=== PATIENT | female | born 1950 | race Caucasian/White ===

== ENCOUNTER 2016-10-06 11:17 | Emergency (ER) | payer OTHER ==
[~2016-10-06] VITALS: Ht 175.3 cm; Wt 101.5 kg
[~2016-10-06 11:17] MED LIST: ALBUAER3 INH; ASPI81TA11 PO; DEPA500T3 PO; LEVO.125 PO; PRIM250 PO; TEGR200T PO
[2016-10-06 11:33] VITALS: BP 142/68; PULSE 99; RESP 16; TEMP 98.5; O2SAT 96
[2016-10-06] MEDS ORDERED: traMADol HCL 50 MG TAB PO ONE (12:00)
[2016-10-06 12:19] LABS: AUTOMATED NEUTROPHIL # 5.9 TH/MM3 (1.8-7.7); BASOPHIL # 0.2 TH/MM3 (0-0.2); BASOPHIL % 3.3 % (0.0-2.0); BLOOD, URINE LARGE (NEG); EOSINOPHIL % 0.3 % (0.0-4.0); GLUCOSE,URINE NEG (NEG); HEMATOCRIT 40.9 % (35.0-46.0); HEMO FLAGS DIFF FINAL; KETONE, URINE 40 mg/dL (NEG); LYMPH % 11.1 % (9.0-44.0); LYMPHOCYTE # 0.8 TH/MM3 (1.0-4.8); MEAN CELL VOLUME 101.7 FL (80.0-100.0); MEAN CORPUSCULAR HEMOGLOBIN 35.3 PG (27.0-34.0); MEAN CORPUSCULAR HGB CONC 34.7 % (32.0-36.0); MONO % 7.4 % (0.0-8.0); NEUT % 77.9 % (16.0-70.0); NITRITE,URINE NEG (NEG); PLATELET COUNT 249 TH/MM3 (150-450); RED BLOOD COUNT 4.02 MIL/MM3 (4.00-5.30); RED CELL DISTRIBUTION WIDTH 12.8 % (11.6-17.2); WHITE BLOOD COUNT 7.5 TH/MM3 (4.0-11.0)
[2016-10-06 12:24] LABS: METHOD OF COLLECTION CLEAN CATCH; URINE COLOR YELLOW (YELLW/STRAW); WBC, URINE INNUM /hpf (0-5)
[2016-10-06 12:28] LABS: BACTERIA, URINE FEW /hpf; SQUAMOUS EPITHELIAL CELL URINE > 8 /hpf (0-5)
[2016-10-06 12:30] LABS: COMMENT (UR) CULTURE INDICATED; CULTURE IF INDICATED CULTURE INDICATED
[2016-10-06] MEDS ORDERED: MORPHINE SULFATE 4 MG/ML INJ IV PUSH ONE (12:45)
[2016-10-06] MEDS ORDERED: PHENAZOPYRIDINE HCL 100 MG TAB PO ONE (12:45)
[2016-10-06] MEDS ORDERED: cefTRIAXone INJ 1,000 MG in SODIUM CHLORIDE 0.9% INJ 100 ML IV ONE (12:45)
[2016-10-06 12:51] LABS: ALKALINE PHOSPHATASE 82 U/L (45-117); ALT (GPT) 16 U/L (10-53); AST (GOT) 18 U/L (15-37); BICARBONATE 24.9 MEQ/L (21.0-32.0); BLOOD UREA NITROGEN 10 MG/DL (7-18); CHLORIDE 84 MEQ/L (98-107); GLOMERULAR FILTRATION RATE 96 ML/MIN (>89); POTASSIUM 4.2 MEQ/L (3.5-5.1); TOTAL BILIRUBIN ADULT 0.6 MG/DL (0.2-1.0)
[2016-10-06 12:56] LABS: ANION GAP 16 MEQ/L (5-15); SODIUM (NA) 125 MEQ/L (136-145)
[2016-10-06] MEDS ORDERED: ONDANSETRON HCL 4 MG/2 ML VIAL IV PUSH ONE (13:15)
[2016-10-06] MEDS ORDERED: PHEN0.4T PO (13:29)
[2016-10-06] MEDS ORDERED: CIPR-9 PO (13:29)
[2016-10-06] MEDS ORDERED: HYDR-3533 PO (13:29)
--- NOTE | 2016-10-06 13:29 | PD ---
HPI Chief Complaint: Complaint Time Seen by Provider: 11:45 Travel History International Travel<30 days: No Contact w/Intl Traveler<30days: No Traveled to known affect area: No History of Present Illness HPI Patient is a 66-year-old female who comes in complaining of vaginal burning and itching. She says that she is urinating frequently, and often is dribbling urine. She was admitted to the hospital in early August and says she had a Hou catheter at that time. She says since the catheter was removed she has been having discomfort, but it has gotten much worse in the past few days. She says she did have one episode of nausea and vomiting last night, but thought it was due to glass of wine to drink on an empty stomach. She felt a little nauseous this morning but was able to eat some crackers without vomiting. She denies any fever or chills. She denies any abdominal pain. PFSH Past Medical History Arthritis: Yes Asthma: Yes Autoimmune Disease: No Blood Disorders: No Depression: Yes (NO MEDS--RARELY FEELS DEPRESSED) Cancer: No Cardiovascular Problems: No COPD: Yes Cerebrovascular Accident: No Diabetes: No Diminished Hearing: Yes (WEARS GLASSES) Endocrine: Yes Gastrointestinal Disorders: No Genitourinary: No Headaches: No Implanted Vascular Access Dvce: Yes Musculoskeletal: Yes Neurologic: Yes (EPILEPSY) Reproductive: No (TUBAL LIGATION) Respiratory: Yes (copd) Migraines: No Seizures: Yes (CONTROLLED SINCE 12 YEARS OLD) Sleep Apnea: No Thyroid Disease: Yes PNEUMOCCOCAL Vaccine (Year): 2 ?: Not Menopausal: Yes Past Surgical History Abdominal Surgery: No AICD: No Arteriovenous Shunt: No Body Medical Devices: VAGUS NERVE STIMULATOR Cardiac Surgery: No Ear Surgery: No Endocrine Surgery: No Eye Surgery: Yes (BILAT CATARACTS REPAIRED) Genitourinary Surgery: No Gynecologic Surgery: Yes (TUBAL LIGATION) Joint Replacement: No Neurologic Surgery: Yes (vagus nerve stimulator placed) Oral Surgery: No Pacemaker: No Thoracic Surgery: Yes (VAGAL NERVE STIMULATOR) Other Surgery: Yes Social History Alcohol Use: Yes (WINE) Tobacco Use: No Substance Use: No Allergies-Medications (Allergen,Severity, Reaction): Coded Allergies: Biaxin (Verified Allergy, Severe, "BODY GOES NUMB", 10/06/16) Clarithromycin (Verified Allergy, Intermediate, PT STATES THAT SHE IS NOT AWARE OF ALLERGY TO THIS MED, 10/06/16) REACTION NOT GIVEN Reported Meds & Prescriptions Reported Meds & Active Scripts Active Aspirin EC (Aspirin) 81 Mg Tabdr 81 Mg PO DAILY Reported Mysoline (Primidone) 250 Mg Tab 250 Mg PO TID Synthroid (Levothyroxine Sodium) 125 Mcg Tab 125 Mcg PO DAILY Depakote ER (Divalproex Sodium) 500 Mg Antwan 500 Mg PO DAILY Proair Hfa 8.5 GM Inh (Albuterol Sulfate) 90 Mcg/Act Aer 2 Puff INH Q6H PRN 108 mcg/actuation Tegretol (Carbamazepine) 200 Mg Tab 200 Mg PO TID Review of Systems Except as stated in HPI: all other systems reviewed are Neg General / Constitutional: No: Fever, Chills HENT: No: Headaches, Lightheadedness Cardiovascular: No: Chest Pain or Discomfort Respiratory: No: Shortness of Breath Gastrointestinal: Positive: Nausea, No: Abdominal Pain Genitourinary: Positive: Urgency, Frequency, Dysuria, No: Flank Pain Musculoskeletal: No: Myalgias, Edema Skin: No Change in Pigmentation Physical Exam Narrative GENERAL: Awake and alert, in moderate distress secondary to pain. SKIN: Warm and dry. HEAD: Atraumatic. Normocephalic. EYES: Pupils equal and round. No scleral icterus. ENT: Mucous membranes pink and moist. NECK: Trachea midline. No JVD. CARDIOVASCULAR: Regular rate and rhythm. No murmur appreciated. RESPIRATORY: No accessory muscle use. Clear to auscultation. Breath sounds equal bilaterally. GASTROINTESTINAL: Abdomen soft, non-tender, nondistended. No CVA tenderness. : No erythema of the vulva or surrounding skin. No irritation seen on the outside of the vagina. MUSCULOSKELETAL: No obvious deformities. No clubbing. No cyanosis. No edema. NEUROLOGICAL: Awake and alert. No obvious cranial nerve deficits. Motor grossly within normal limits. Normal speech. PSYCHIATRIC: Appropriate mood and affect; insight and judgment normal. Data Data Last Documented VS Vital Signs Date Time Temp Pulse Resp B/P Pulse Ox O2 Delivery O2 Flow Rate FiO2 10/06/16 11:33 98.5 99 16 142/68 96 Orders Complete Blood Count With Diff (10/06/16 11:54) Comprehensive Metabolic Panel (10/06/16 11:54) Urinalysis - C+S If Indicated (10/06/16 11:54) Tramadol (Ultram) (10/06/16 12:00) Urine Culture (10/06/16 12:14) Ceftriaxone Inj (Rocephin Inj) (10/06/16 12:45) Morphine Inj (Morphine Inj) (10/06/16 12:45) Phenazopyridine (Pyridium) (10/06/16 12:45) Ondansetron Inj (Zofran Inj) (10/06/16 13:15) Labs Laboratory Tests Test 10/06/16 12:14 White Blood Count 7.5 TH/MM3 Red Blood Count 4.02 MIL/MM3 Hemoglobin 14.2 GM/DL Hematocrit 40.9 % Mean Corpuscular Volume 101.7 FL Mean Corpuscular Hemoglobin 35.3 PG Mean Corpuscular Hemoglobin 34.7 % Concent Red Cell Distribution Width 12.8 % Platelet Count 249 TH/MM3 Mean Platelet Volume 8.1 FL Neutrophils (%) (Auto) 77.9 % Lymphocytes (%) (Auto) 11.1 % Monocytes (%) (Auto) 7.4 % Eosinophils (%) (Auto) 0.3 % Basophils (%) (Auto) 3.3 % Neutrophils # (Auto) 5.9 TH/MM3 Lymphocytes # (Auto) 0.8 TH/MM3 Monocytes # (Auto) 0.6 TH/MM3 Eosinophils # (Auto) 0.0 TH/MM3 Basophils # (Auto) 0.2 TH/MM3 CBC Comment DIFF FINAL Differential Comment Urine Collection Type CLEAN CATCH Urine Color YELLOW Urine Turbidity MOD Urine pH 6.0 Urine Specific [place] 1.018 Urine Protein 100 mg/dL Urine Glucose (UA) NEG mg/dL Urine Ketones 40 mg/dL Urine Occult Blood LARGE Urine Nitrite NEG Urine Bilirubin NEG Urine Leukocyte Esterase LARGE Urine RBC 25-49 /hpf Urine WBC INNUM /hpf Urine Squamous Epithelial > 8 /hpf Cells Urine Bacteria FEW /hpf Urine Yeast (Budding) MOD Microscopic Urinalysis Comment CULTURE INDICATED Urine Collection Time 12:14 Sodium Level 125 MEQ/L Potassium Level 4.2 MEQ/L Chloride Level 84 MEQ/L Carbon Dioxide Level 24.9 MEQ/L Anion Gap 16 MEQ/L Blood Urea Nitrogen 10 MG/DL Creatinine 0.62 MG/DL Estimat Glomerular Filtration 96 ML/MIN Rate Random Glucose 105 MG/DL Calcium Level 8.7 MG/DL Total Bilirubin 0.6 MG/DL Aspartate Amino Transf 18 U/L (AST/SGOT) Alanine Aminotransferase 16 U/L (ALT/SGPT) Alkaline Phosphatase 82 U/L Total Protein 7.6 GM/DL Albumin 3.8 GM/DL [facility] Medical Decision Making Medical Screen Exam Complete: Yes Emergency Medical Condition: Yes Medical Record Reviewed: Yes Differential Diagnosis UTI versus pyelonephritis versus yeast vaginitis Narrative Course Patient is a 66-year-old female comes in complaining of vaginal burning and itching with urinary frequency and urgency. Exam shows no flank pain, no abdominal tenderness. IV established, labs sent. Labs show no acute abnormalities. Urinalysis is positive for UTI. Patient is very uncomfortable, given tramadol and IV fluids. Given Rocephin for infection. Patient continues to be very uncomfortable, given morphine, Zofran, Pyridium. Patient is feeling better after medications. Will be discharged with course of Cipro. Given prescription for peridium as well. Patient advised follow-up with her doctor. Advised to return to the ED as needed for any worsening symptoms. Diagnosis Primary Impression: UTI (urinary tract infection) Qualified Code: N30.00 - Acute cystitis without hematuria Patient Instructions: General Instructions, Urinary Tract Infection in Women ( ED) Additional Instructions: Follow up with your doctor. You can take Ibuprofen as needed for pain. If your pain is unbearable, you can take a Lortab. The Pyridium will also help relieve your symptoms. Make sure to take all of your antibiotics. Return to the ED if you have any worsening symptoms. Scripts Hydrocodone-Acetaminophen (Lortab)5-325 Mg Tab1 Tab PO Q6H PRN (PAIN) #7 TAB Ref 0 Prov:Florence Chase MD 10/06/16 Phenazopyridine (Pyridium)100 Mg [id number] Mg PO Q8H PRN (DYSURIA) 2 Days Ref 0 Prov:Florence Chase MD 10/06/16 Ciprofloxacin (Cipro)500 Mg [id number] Mg PO BID 10 Days Ref 0 Prov:Florence Chase MD 10/06/16 Disposition: 01 DISCHARGE HOME Condition: Stable Florence Chase MD Oct 06, 2016 13:29
== END 2016-10-06 14:49 | disposition home or self-care (01) ==
LOC: PHED 11:17
DX: N39.0 Urinary tract infection, site not specified (principal); B96.1 Klebsiella pneumoniae [K. pneumoniae] as the cause of diseases classified elsewhere; J44.9 Chronic obstructive pulmonary disease, unspecified
CPT/HCPCS: 80053; 81001; 85025; 87077; 87086; 87186; 96365; 96375; 99283; J0696; J2270; J2405

== ENCOUNTER 2017-03-27 14:58 | Emergency (ER) | payer OTHER ==
[~2017-03-27 14:58] MED LIST changes: +CIPR-9 PO; +HYDR-3533 PO; +PHEN0.4T PO
[2017-03-27 15:02] VITALS: BP 122/71; PULSE 88; RESP 20; TEMP 98.1; O2SAT 94
--- NOTE | 2017-03-27 15:25 | PD ---
HPI Chief Complaint: Back/ Neck Pain or Injury Time Seen by Provider: 15:11 Travel History International Travel<30 days: No Contact w/Intl Traveler<30days: No Traveled to known affect area: No History of Present Illness HPI This is a 66-year-old female who presents to the emergency department with a history of COPD several days ago having been coughing in the setting of choking on food. She says she was coughing really hard and she had onset several hours after of severe pain in the right side of her chest and rib cage, constant, worse with moving from side to side, improved with rest. The pain only occurs when she moves her torso. It has not improved over the past several days despite taking Percocet and ibuprofen. She denies any associated shortness of breath or pain with deep breaths. PFSH Past Medical History Arthritis: Yes Asthma: Yes Autoimmune Disease: No Blood Disorders: No Depression: Yes (NO MEDS--RARELY FEELS DEPRESSED) Cancer: No Cardiovascular Problems: No COPD: Yes Cerebrovascular Accident: No Diabetes: No Diminished Hearing: Yes (WEARS GLASSES) Endocrine: Yes Gastrointestinal Disorders: No Genitourinary: No Headaches: No Implanted Vascular Access Dvce: Yes Musculoskeletal: Yes Neurologic: Yes (EPILEPSY) Reproductive: No (TUBAL LIGATION) Respiratory: Yes (COPD) Migraines: No Seizures: Yes (CONTROLLED SINCE 12 YEARS OLD) Sleep Apnea: No Thyroid Disease: Yes PNEUMOCCOCAL Vaccine (Year): 2 Menopausal: Yes Past Surgical History Abdominal Surgery: No AICD: No Arteriovenous Shunt: No Body Medical Devices: VAGUS NERVE STIMULATOR Cardiac Surgery: No Ear Surgery: No Endocrine Surgery: No Eye Surgery: Yes (BILAT CATARACTS REPAIRED) Genitourinary Surgery: No Gynecologic Surgery: Yes (TUBAL LIGATION) Joint Replacement: No Neurologic Surgery: Yes (vagus nerve stimulator placed) Oral Surgery: No Pacemaker: No Thoracic Surgery: Yes (VAGAL NERVE STIMULATOR) Other Surgery: Yes Social History Alcohol Use: Yes (WINE) Tobacco Use: No Substance Use: No Allergies-Medications (Allergen,Severity, Reaction): Coded Allergies: Biaxin (Verified Allergy, Severe, "BODY GOES NUMB", 03/27/17) Clarithromycin (Verified Allergy, Intermediate, PT STATES THAT SHE IS NOT AWARE OF ALLERGY TO THIS MED, 03/27/17) REACTION NOT GIVEN Reported Meds & Prescriptions Reported Meds & Active Scripts Active Lortab (Hydrocodone-Acetaminophen) 5-325 Mg Tab 1 Tab PO Q6H PRN Aspirin EC (Aspirin) 81 Mg Tabdr 81 Mg PO DAILY Reported Atorvastatin (Atorvastatin Calcium) 10 Mg Tab 10 Mg PO HS Mirapex (Pramipexole Dihydrochloride) 0.5 Mg Tab 0.5 Mg PO BID Ventolin Hfa 18 GM Inh (Albuterol Sulfate) 90 Mcg/Act Aer 2 Puff INH Q4-6H PRN Mysoline (Primidone) 250 Mg Tab 250 Mg PO TID Synthroid (Levothyroxine Sodium) 125 Mcg Tab 125 Mcg PO DAILY Depakote ER (Divalproex Sodium) 500 Mg Antwan 500 Mg PO BID Tegretol (Carbamazepine) 200 Mg Tab 200 Mg PO TID Review of Systems Except as stated in HPI: all other systems reviewed are Neg Physical Exam Narrative GENERAL: obese. SKIN: Focused skin assessment warm and dry. HEAD: Atraumatic. Normocephalic. EYES: Pupils equal and round. No injection or drainage. ENT: Moist mucous membranes NECK: Trachea midline. CARDIOVASCULAR: Regular rate and rhythm. No murmur appreciated. RESPIRATORY: Clear to auscultation. Breath sounds equal bilaterally. GASTROINTESTINAL: Abdomen soft, non-tender, nondistended. MUSCULOSKELETAL: Focally tender over the right lower ribs below the axilla. No focal vertebral tenderness. NEUROLOGICAL: Awake and alert. No obvious cranial nerve deficits. Moving all extremities. PSYCHIATRIC: Appropriate mood and affect; insight and judgment normal. Data Data Last Documented VS Vital Signs Date Time Temp Pulse Resp B/P Pulse Ox O2 Delivery O2 Flow Rate FiO2 03/27/17 15:02 98.1 88 20 122/71 94 Orders Chest, Pa & Lat (03/27/17 ) Spine, Thoracic-Ap/Lat/Sw(3vw) (03/27/17 ) Hydromorphone Pf Inj (Dilaudid Pf Inj) (03/27/17 15:30) MDM Medical Decision Making Medical Screen Exam Complete: Yes Emergency Medical Condition: Yes Differential Diagnosis Rib contusion, rib fracture, pneumothorax, pulmonary embolism, pneumonia Narrative Course This is a 66-year-old female who developed right sided rib pain after coughing 2 days ago. She has a history of COPD and is obese. The pain is musculoskeletal in nature and is only elicited when she twists her torso or moves from side to side. She is focally tender on the lateral rib cage on the right. I considered pneumonia or pulmonary embolism but I think both of these are unlikely as her pain clinically appears to be musculoskeletal. Patient was given pain control here in the emergency department chest x-ray and thoracic spine x-ray will be obtained. If these are reassuring at think she can be discharged home with pain control and follow-up with her primary care physician. If she develops new symptoms she should return to the emergency department. Arianna White MD Mar 27, 2017 15:25
[2017-03-27] MEDS ORDERED: HYDROmorphone HCL PF 1 MG/ML VIAL IM ONE (15:30)
[2017-03-27] MEDS ORDERED: MIRA0.5T PO (15:40)
[2017-03-27] MEDS ORDERED: VENTAER INH (15:40)
[2017-03-27] MEDS ORDERED: ATOR10TA15 PO (15:41)
--- NOTE | 2017-03-27 16:07 | RADRPT ---
EXAM DATE/TIME: 03/27/2017 15:48 [facility] COMPARISON: No previous studies available for comparison. INDICATIONS : Back pain. MEDICAL HISTORY : None. SURGICAL HISTORY : Vagul nerve stimulator. ENCOUNTER: Initial ACUITY: 2 days PAIN SCORE: 9/10 LOCATION: [facility] FINDINGS: The lungs are hyperinflated but clear. Pacemaker is evident. There is no overt congestive failureTh e portion of the bony skeleton visualized is unremarkable. CONCLUSION: Hyperinflated with pacer otherwise negative. Giles Rosenberg MD FACR on March 27, 2017 at 16:04 Board Certified Radiologist. This report was verified electronically.
--- NOTE | 2017-03-27 16:22 | PD ---
Physical Exam Time Seen by Provider: 16:17 Narrative Patient was signed out to me pending results of imaging studies. Please see previous providers note for details. In short, this is a 66-year-old female who presents to the emergency room for evaluation of right-sided back pain after coughing spell 2 days ago. Patient was choking on food and exerted herself to the point of pain. She reports excruciating 9/10 pain in the right posterior rib that is worse with deep breathing, coughing, and range of motion. GENERAL: Well-nourished, morbidly obese female in no acute distress. Afebrile. SKIN: Focused skin assessment warm/dry. HEAD: Normocephalic. EYES: No scleral icterus. No injection or drainage. NECK: Supple, trachea midline. No JVD or lymphadenopathy. CARDIOVASCULAR: Regular rate and rhythm without murmurs, gallops, or rubs. RESPIRATORY: Breath sounds equal bilaterally. No accessory muscle use. CHEST: No deformity or crepitance. No retractions or use of accessory muscles. There is point tenderness to palpation of the right lateral ribs at approximately #6. BACK: Nontender without obvious deformity. No CVA tenderness. Data Data Last Documented VS Vital Signs Date Time Temp Pulse Resp B/P Pulse Ox O2 Delivery O2 Flow Rate FiO2 03/27/17 15:02 98.1 88 20 122/71 94 Orders Chest, Pa & Lat (03/27/17 ) Spine, Thoracic-Ap/Lat/Sw(3vw) (03/27/17 ) Hydromorphone Pf Inj (Dilaudid Pf Inj) (03/27/17 15:30) MDM Medical Record Reviewed: Yes Supervised Visit with FRANCISCA: Yes Differential Diagnosis Rib fracture, contusion, muscle spasm, strain, sprain Narrative Course 66-year-old female presents to the emergency room for evaluation of right-sided posterior rib and back pain after choking 2 days ago. She is afebrile and well- appearing in the emergency room. Resting comfortably. No increased work of breathing. Lungs sounds clear and equal bilaterally. Slightly distant but she has history of COPD. X-ray of the chest shows no acute abnormalities. Differential includes fractured rib or muscle strain secondary to coughing. Thoracic spine x-ray is negative. Patient was informed that fractured ribs do not always show up on x-ray in that to prevent pneumonia she will need to continue taking deep breaths. She was discharged with prescription for Lortab and told to follow-up with her primary care physician. She understands and agrees to plan. Diagnosis Primary Impression: Rib pain on right side Referrals: Primary Care Physician Patient Instructions: General Instructions, Rib Fracture (ED), Thoracic Back Strain (ED) Additional Instruction: Rest and drink plenty of fluids. Take Lortab as directed, as needed for pain. Do not drink alcohol or drive while taking this medication. Apply ice to the affected area for 20 minutes at a time, as needed for pain and swelling. Follow-up with a primary care physician. Return to the emergency room for worsening symptoms. Med/Other Pt SpecificInfo: Prescription(s) given Scripts Hydrocodone-Acetaminophen (Lortab)5-325 Mg Tab1 Tab PO Q6H PRN (PAIN) #12 TAB Ref 0 Prov:Yo Salgado MD 03/27/17 Disposition: 01 DISCHARGE HOME Condition: Stable Michelle Lui Mar 27, 2017 16:22
--- NOTE | 2017-03-27 16:25 | RADRPT ---
EXAM DATE/TIME: 03/27/2017 15:59 [facility] COMPARISON: No previous studies available for comparison. INDICATIONS : Back pain. MEDICAL HISTORY : None. SURGICAL HISTORY : Vagal nerve stimulator. ENCOUNTER: Initial ACUITY: 2 days PAIN SCORE: 8/10 LOCATION: [facility] FINDINGS: Thoracolumbar scoliosis is noted. Mild degenerative changes are evident. There is good preservation of vertebral body heights. Scoliosis is causing minimal degenerative changes. CONCLUSION: 1. Negative for an acute compression. 2. Patient has a vagal nerve stimulator. Giles Rosenberg MD FACR on March 27, 2017 at 16:20 Board Certified Radiologist. This report was verified electronically.
[2017-03-27] MEDS ORDERED: HYDR-3533 PO (17:38)
== END 2017-03-27 18:10 | disposition home or self-care (01) ==
LOC: PHEFT 14:58
DX: R07.81 Pleurodynia (principal); J44.9 Chronic obstructive pulmonary disease, unspecified; J45.909 Unspecified asthma, uncomplicated; E07.9 Disorder of thyroid, unspecified
CPT/HCPCS: 71020; 72072; 96372; 99284; J1170

== ENCOUNTER 2017-04-22 18:03 | Emergency (ER) | payer OTHER ==
[~2017-04-22] VITALS: Ht 172.7 cm; Wt 104.0 kg
[~2017-04-22 18:03] MED LIST changes: -ALBUAER3 INH; +ATOR10TA15 PO; -CIPR-9 PO; +MIRA0.5T PO; -PHEN0.4T PO; +VENTAER INH
[2017-04-22 18:22] VITALS: BP 142/67; PULSE 84; RESP 18; TEMP 98; O2SAT 96
--- NOTE | 2017-04-22 18:36 | PD ---
HPI Chief Complaint: Chest Pain Time Seen by Provider: 18:24 Travel History International Travel<30 days: No Contact w/Intl Traveler<30days: No Traveled to known affect area: No History of Present Illness HPI 66-year-old female arrives with 2 days of sore throat 1 day of retrosternal chest pain. She has COPD and suffers with chronic dyspnea. Any exertion worsens or shortness of breath. She's had no fever. The patient reports a chronic cough and chronic shortness of breath. Pain is worse with swallowing. The chest pain does not radiate. Patient has no history of hypertension hyperlipidemia or coronary artery disease. No history of diabetes. The patient does not smoke. PFSH Past Medical History Arthritis: Yes Asthma: Yes Autoimmune Disease: No Blood Disorders: No Depression: Yes Cancer: No Cardiovascular Problems: No COPD: Yes Cerebrovascular Accident: No Diabetes: No Diminished Hearing: Yes (WEARS GLASSES) Endocrine: Yes Gastrointestinal Disorders: No Genitourinary: No Headaches: No Implanted Vascular Access Dvce: Yes Musculoskeletal: Yes Neurologic: Yes (EPILEPSY) Respiratory: Yes (COPD) Immunizations Current: No Migraines: No Seizures: Yes (CONTROLLED SINCE 12 YEARS OLD) Sleep Apnea: No Thyroid Disease: Yes Influenza Vaccination: No PNEUMOCCOCAL Vaccine (Year): 2 ?: Not Menopausal: Yes Tubal Ligation: Yes Past Surgical History Abdominal Surgery: No AICD: No Arteriovenous Shunt: No Body Medical Devices: VAGUS NERVE STIMULATOR Cardiac Surgery: No Ear Surgery: No Endocrine Surgery: No Eye Surgery: Yes (BILAT CATARACTS REPAIRED) Genitourinary Surgery: No Gynecologic Surgery: Yes (TUBAL LIGATION) Joint Replacement: No Neurologic Surgery: Yes (vagus nerve stimulator placed) Oral Surgery: No Pacemaker: No Thoracic Surgery: Yes (VAGAL NERVE STIMULATOR) Other Surgery: Yes Social History Alcohol Use: Yes (WINE) Tobacco Use: No Substance Use: No Allergies-Medications (Allergen,Severity, Reaction): Coded Allergies: Biaxin (Verified Allergy, Severe, "BODY GOES NUMB", 03/27/17) Clarithromycin (Verified Allergy, Intermediate, PT STATES THAT SHE IS NOT AWARE OF ALLERGY TO THIS MED, 03/27/17) REACTION NOT GIVEN Reported Meds & Prescriptions Reported Meds & Active Scripts Active Nystatin Liq 100,000 unit/ml Susp 5 Ml SWISH-SWAL QID 14 Days Aspirin EC (Aspirin) 81 Mg Tabdr 81 Mg PO DAILY Reported Atorvastatin (Atorvastatin Calcium) 10 Mg Tab 10 Mg PO HS Mirapex (Pramipexole Dihydrochloride) 0.5 Mg Tab 0.5 Mg PO BID Ventolin Hfa 18 GM Inh (Albuterol Sulfate) 90 Mcg/Act Aer 2 Puff INH Q4-6H PRN Mysoline (Primidone) 250 Mg Tab 250 Mg PO TID Synthroid (Levothyroxine Sodium) 125 Mcg Tab 125 Mcg PO DAILY Depakote ER (Divalproex Sodium) 500 Mg Antwan 500 Mg PO BID Tegretol (Carbamazepine) 200 Mg Tab 200 Mg PO TID Review of Systems Except as stated in HPI: all other systems reviewed are Neg General / Constitutional: No: Fever Respiratory: Positive: Cough, Shortness of Breath Physical Exam Narrative GENERAL: 66-year-old female pleasant well-nourished well-developed SKIN: Focused skin assessment warm/dry. HEAD: Atraumatic. Normocephalic. EYES: Pupils equal and round. No scleral icterus. No injection or drainage. ENT: No nasal bleeding or discharge. Mucous membranes pink and moist. Posterior oropharynx demonstrates multiple discrete round white lesions consistent with thrush. NECK: Trachea midline. No JVD. CARDIOVASCULAR: Regular rate and rhythm. No murmur appreciated. RESPIRATORY: No accessory muscle use. Clear to auscultation. Breath sounds equal bilaterally. GASTROINTESTINAL: Abdomen soft, non-tender, nondistended. Hepatic and splenic margins not palpable. MUSCULOSKELETAL: No obvious deformities. No clubbing. No cyanosis. No edema. NEUROLOGICAL: Awake and alert. No obvious cranial nerve deficits. Motor grossly within normal limits. Normal speech. PSYCHIATRIC: Appropriate mood and affect; insight and judgment normal. Data Data Last Documented VS Vital Signs Date Time Temp Pulse Resp B/P Pulse Ox O2 Delivery O2 Flow Rate FiO2 04/22/17 18:25 Room Air 04/22/17 18:22 98.0 84 18 142/67 96 Vital signs reviewed Orders Al-Mag Hy-Si 40-40-4 Mg/Ml Liq (Mag-Al P (04/22/17 18:45) Lidocaine 2% Viscous (Xylocaine 2% Visco (04/22/17 18:45) Fluconazole (Diflucan) (04/22/17 18:45) MDM Medical Decision Making Medical Screen Exam Complete: Yes Emergency Medical Condition: Yes Medical Record Reviewed: Yes Differential Diagnosis Thrush, cardiopulmonary disease, GERD, COPD Narrative Course Fortunately the patient has a fairly classic presentation of thrush. We'll provide a prescription for nystatin swish and swallow. Return precautions discussed. Diagnosis Primary Impression: Thrush of mouth and esophagus Referrals: DR TAJ WALKER 2 days Additional Instructions: You have a choice when it comes to health care, and we are glad that you chose [facility]. Hopefully, we have met your expectations on today's visit. You are welcome to return to [facility] at any time, as we are committed to meeting the health care needs of our community. Med/Other Pt SpecificInfo: Prescription(s) given Scripts Nystatin Liq 100,000 unit/ml Susp5 Ml SWISH-SWAL QID 14 Days Ref 0 Prov:Valentín Meyers MD 04/22/17 Disposition: 01 DISCHARGE HOME Condition: Stable Valentín Meyers MD Apr 22, 2017 18:36
[2017-04-22] MEDS ORDERED: NYST1000 SWISH-SWAL (18:38)
[2017-04-22] MEDS ORDERED: ALUMINUM/MAGNESIUM/SIMETH 30 ML CUP PO ONE (18:45)
[2017-04-22] MEDS ORDERED: FLUCONAZOLE 200 MG TAB PO ONE (18:45)
[2017-04-22] MEDS ORDERED: LIDOCAINE VISCOUS 2% SOLN 15 ML UDC PO ONE (18:45)
[2017-04-22 19:03] VITALS: BP 116/65; PULSE 75; RESP 18
--- NOTE | 2017-04-23 11:55 | EKG ---
Date Performed: 04/22/2017 Time Performed: 18:18:18 PTAGE: 66 years EKG: Sinus rhythm WITH SHORT MO INTERVAL WITH OCCASIONAL VENTRICULAR PREMATURE COMPLEXES NONSPECIFIC ST & T-WAVE ABNOR MALITY BORDERLINE ECG INTERPRETATION BASED ON A DEFAULT AGE OF 40 YEARS PREVIOUS TRACING : 09/02/2016 19.59 Compared to prior tracing no significant change DOCTOR: Audi Forrester Interpretating Date/Time 04/23/2017 11:53:51
== END 2017-04-22 19:17 | disposition home or self-care (01) ==
LOC: PHED 18:03
DX: B37.81 Candidal esophagitis (principal); B37.0 Candidal stomatitis; J44.9 Chronic obstructive pulmonary disease, unspecified; G40.909 Epilepsy, unspecified, not intractable, without status epilepticus
CPT/HCPCS: 93005; 99283

== ENCOUNTER 2017-06-02 17:00 | Emergency (ER) | payer OTHER ==
[~2017-06-02] VITALS: Ht 175.3 cm; Wt 100.0 kg
[~2017-06-02 17:00] MED LIST changes: -HYDR-3533 PO; +NYST1000 SWISH-SWAL
[2017-06-02 17:17] VITALS: BP 149/100; PULSE 80; RESP 16; TEMP 98.3; O2SAT 93
[2017-06-02] MEDS ORDERED: RESP: ALBUTEROL 2.5 MG/IPRATROPIUM 0.5 MG NEB (SCH) NEB ONE (17:45)
[2017-06-02] MEDS ORDERED: PRAMIPEXOLE DIHYDROCHLORIDE 0.25 MG TAB PO ONE (17:45)
[2017-06-02] MEDS ORDERED: HYDROmorphone HCL PF 1 MG/ML VIAL IV PUSH ONE (17:45)
[2017-06-02] MEDS ORDERED: ONDANSETRON HCL 4 MG/2 ML VIAL IV PUSH ONE (17:45)
[2017-06-02] MEDS ORDERED: PRIMIDONE 250 MG TAB PO ONE (17:45)
[2017-06-02] MEDS ORDERED: carBAMazepine 200 MG TAB PO ONE (17:45)
[2017-06-02] MEDS ORDERED: SODIUM CHLOR 0.9% 1000 ML INJ 1,000 ML IV SCH (17:45)
--- NOTE | 2017-06-02 17:45 | PD ---
HPI Chief Complaint: GI Complaint Time Seen by Provider: 17:31 Travel History International Travel<30 days: No Contact w/Intl Traveler<30days: No Traveled to known affect area: No History of Present Illness HPI This 67-year-old female has multiple complaints. She says she's been coughing a lot. She thinks she might of reinjured a right posterior rib that was previously fractured during her coughing. She is having some sharp pain at the site. His been going on for several days. She started coughing a lot on May 25. She has been drinking more than she used to thoroughly because of the pain are likely due to stress. Been taking Tylenol for pain without much response. She does have a history of seizures and has restless legs. He is requesting something for pain for her right posterior rib pain PFSH Past Medical History Arthritis: Yes Asthma: Yes Autoimmune Disease: No Blood Disorders: No Depression: Yes Cancer: No Cardiovascular Problems: No COPD: Yes Cerebrovascular Accident: No Diabetes: No Diminished Hearing: Yes (WEARS GLASSES) Endocrine: Yes Gastrointestinal Disorders: No Genitourinary: No Headaches: No Implanted Vascular Access Dvce: Yes Musculoskeletal: Yes Neurologic: Yes (EPILEPSY) Respiratory: Yes (copd) Immunizations Current: No Migraines: No Seizures: Yes (CONTROLLED SINCE 12 YEARS OLD) Sleep Apnea: No Thyroid Disease: Yes Tetanus Vaccination: Unknown Influenza Vaccination: No PNEUMOCCOCAL Vaccine (Year): 2 ?: Not Menopausal: Yes Tubal Ligation: Yes Past Surgical History Abdominal Surgery: No AICD: No Arteriovenous Shunt: No Body Medical Devices: VAGUS NERVE STIMULATOR Cardiac Surgery: No Ear Surgery: No Endocrine Surgery: No Eye Surgery: Yes (BILAT CATARACTS REPAIRED) Genitourinary Surgery: No Gynecologic Surgery: Yes (TUBAL LIGATION) Joint Replacement: No Neurologic Surgery: Yes (vagus nerve stimulator placed) Oral Surgery: No Pacemaker: No Thoracic Surgery: Yes (VAGAL NERVE STIMULATOR) Other Surgery: Yes Social History Alcohol Use: Yes (WINE) Tobacco Use: No Substance Use: No Allergies-Medications (Allergen,Severity, Reaction): Coded Allergies: clarithromycin (Unverified Allergy, Intermediate, PT STATES THAT SHE IS NOT AWARE OF ALLERGY TO THIS MED, 06/02/17) REACTION NOT GIVEN Reported Meds & Prescriptions Reported Meds & Active Scripts Active Aspirin EC (Aspirin) 81 Mg Tabdr 81 Mg PO DAILY Reported Atorvastatin (Atorvastatin Calcium) 10 Mg Tab 10 Mg PO HS Mirapex (Pramipexole Dihydrochloride) 0.5 Mg Tab 0.5 Mg PO BID Ventolin Hfa 18 GM Inh (Albuterol Sulfate) 90 Mcg/Act Aer 2 Puff INH Q4-6H PRN Mysoline (Primidone) 250 Mg Tab 250 Mg PO TID Synthroid (Levothyroxine Sodium) 125 Mcg Tab 125 Mcg PO DAILY Depakote ER (Divalproex Sodium) 500 Mg Antwan 500 Mg PO BID Tegretol (Carbamazepine) 200 Mg Tab 200 Mg PO TID Review of Systems General / Constitutional: No: Fever, Chills Eyes: No: Diploplia, Blurred Vision HENT: No: Headaches, Vertigo Cardiovascular: No: Chest Pain or Discomfort, Palpitations, Tachycardia Respiratory: Positive: Pleuritic Pain Gastrointestinal: Positive: Nausea, Vomiting Genitourinary: No: Urgency, Frequency Musculoskeletal: No: Myalgias, Arthralgias Skin: No Rash, No Itching Physical Exam Narrative 5GENERAL: Well-developed female SKIN: Focused skin assessment warm/dry. HEAD: Atraumatic. Normocephalic. EYES: Pupils equal and round. No scleral icterus. No injection or drainage. ENT: No nasal bleeding or discharge. Mucous membranes pink and moist. NECK: Trachea midline. No JVD. CARDIOVASCULAR: Regular rate and rhythm. No murmur appreciated. RESPIRATORY: No accessory muscle use. Occasional rhonchi. Breath sounds equal bilaterally. Right posterior chest tenderness GASTROINTESTINAL: Abdomen soft, non-tender, nondistended. Hepatic and splenic margins not palpable. MUSCULOSKELETAL: No obvious deformities. No clubbing. No cyanosis. No edema. NEUROLOGICAL: Awake and alert. No obvious cranial nerve deficits. Motor grossly within normal limits. Normal speech. PSYCHIATRIC: Appropriate mood and affect; insight and judgment normal. Data Data Last Documented VS Vital Signs Date Time Temp Pulse Resp B/P (MAP) Pulse Ox O2 Delivery O2 Flow Rate FiO2 06/02/17 18:40 83 138/73 (94) 93 Nasal Cannula 2.00 06/02/17 17:17 98.3 16 Orders Orders Complete Blood Count With Diff (06/02/17 17:41) Comprehensive Metabolic Panel (06/02/17 17:41) Lipase (06/02/17 17:41) Chest, Single Ap (06/02/17 17:41) Alcohol (Ethanol) (06/02/17 17:41) Sodium Chlor 0.9% 1000 Ml Inj (Ns 1000 M (06/02/17 17:45) Ondansetron Inj (Zofran Inj) (06/02/17 17:45) Hydromorphone Pf Inj (Dilaudid Pf Inj) (06/02/17 17:45) Albuterol-Ipratropium Neb (Duoneb Neb) (06/02/17 17:45) Pramipexole (Mirapex) (06/02/17 17:45) Primidone (Mysoline) (06/02/17 17:45) Carbamazepine (Tegretol) (06/02/17 17:45) Labs Laboratory Tests Test 06/02/17 17:19 White Blood Count 5.0 TH/MM3 Red Blood Count 4.10 MIL/MM3 Hemoglobin 13.6 GM/DL Hematocrit 40.3 % Mean Corpuscular Volume 98.3 FL Mean Corpuscular Hemoglobin 33.2 PG Mean Corpuscular Hemoglobin Concent 33.8 % Red Cell Distribution Width 13.5 % Platelet Count 298 TH/MM3 Mean Platelet Volume 8.2 FL Neutrophils (%) (Auto) 81.8 % Lymphocytes (%) (Auto) 11.6 % Monocytes (%) (Auto) 5.2 % Eosinophils (%) (Auto) 0.8 % Basophils (%) (Auto) 0.6 % Neutrophils # (Auto) 4.1 TH/MM3 Lymphocytes # (Auto) 0.6 TH/MM3 Monocytes # (Auto) 0.3 TH/MM3 Eosinophils # (Auto) 0.0 TH/MM3 Basophils # (Auto) 0.0 TH/MM3 CBC Comment DIFF FINAL Differential Comment Blood Urea Nitrogen 7 MG/DL Creatinine 0.58 MG/DL Random Glucose 106 MG/DL Total Protein 7.8 GM/DL Albumin 3.7 GM/DL Calcium Level 8.8 MG/DL Alkaline Phosphatase 97 U/L Aspartate Amino Transf (AST/SGOT) 9 U/L Alanine Aminotransferase (ALT/SGPT) 11 U/L Total Bilirubin 0.4 MG/DL Sodium Level 125 MEQ/L Potassium Level 3.9 MEQ/L Chloride Level 87 MEQ/L Carbon Dioxide Level 29.5 MEQ/L Anion Gap 9 MEQ/L Estimat Glomerular Filtration Rate 104 ML/MIN Lipase 86 U/L Ethyl Alcohol Level LESS THAN 3 MG/DL MDM Medical Decision Making Medical Screen Exam Complete: Yes Emergency Medical Condition: Yes Medical Record Reviewed: Yes Differential Diagnosis Differential includes rib fracture, chest wall contusion, Narrative Course X-rays read as negative. Certainly this could miss a rib fracture clinically she does have point tenderness consistent with a rib fracture. Patient does have a sodium of 125. She is on multiple medications. Her sodium was 125 when she was here in September. She does admit that she's been drinking a lot of alcohol. Diagnosis Primary Impression: Rib pain on right side Additional Instructions: Stopped drinking alcohol, interacts with a lot of the medications and is not good for seizures Scripts Ondansetron (Zofran) 4 Mg Tab 4 MG PO Q6HR Y for NAUSEA OR VOMITING, #10 TAB 0 Refills Prov: Juan Campos MD 06/02/17 Hydrocodone-Acetaminophen (Lortab) 7.5-325 Mg Tab 1 TAB PO Q4H Y for PAIN, #30 TAB 0 Refills Prov: Juan Campos MD 06/02/17 Disposition: 01 DISCHARGE HOME Condition: Stable Juan Campos MD Jun 02, 2017 17:45
--- NOTE | 2017-06-02 18:05 | RADRPT ---
EXAM DATE/TIME: 06/02/2017 17:54 [facility] COMPARISON: No previous studies available for comparison. INDICATIONS : Cough, right posterior mid chest area pain with cough, vomiting MEDICAL HISTORY : epilepsy SURGICAL HISTORY : vagus nerve stimulator ENCOUNTER: Initial ACUITY: 1 week PAIN SCORE: 7/10 LOCATION: Right posterior chest FINDINGS: A single view of the chest demonstrates the lungs to be symmetrically aerated without evidence of mas s, infiltrate or effusion. The Jc nerve stimulator is noted. The cardiomediastinal contours are unremarkable. Osseous structures are intact. CONCLUSION: No acute disease. Giles Rosenberg MD FACR on June 02, 2017 at 18:03 Board Certified Radiologist. This report was verified electronically.
[2017-06-02 18:26] LABS: AUTOMATED NEUTROPHIL # 4.1 TH/MM3 (1.8-7.7); BASOPHIL % 0.6 % (0.0-2.0); EOSINOPHIL % 0.8 % (0.0-4.0); HEMATOCRIT 40.3 % (35.0-46.0); HEMO FLAGS DIFF FINAL; LYMPH % 11.6 % (9.0-44.0); LYMPHOCYTE # 0.6 TH/MM3 (1.0-4.8); MEAN CELL VOLUME 98.3 FL (80.0-100.0); MEAN CORPUSCULAR HEMOGLOBIN 33.2 PG (27.0-34.0); MEAN CORPUSCULAR HGB CONC 33.8 % (32.0-36.0); MONO % 5.2 % (0.0-8.0); NEUT % 81.8 % (16.0-70.0); PLATELET COUNT 298 TH/MM3 (150-450); RED CELL DISTRIBUTION WIDTH 13.5 % (11.6-17.2)
[2017-06-02 18:32] LABS: CHLORIDE 87 MEQ/L (98-107); POTASSIUM 3.9 MEQ/L (3.5-5.1); SODIUM (NA) 125 MEQ/L (136-145)
[2017-06-02 18:36] LABS: ANION GAP 9 MEQ/L (5-15); BICARBONATE 29.5 MEQ/L (21.0-32.0); BLOOD UREA NITROGEN 7 MG/DL (7-18)
[2017-06-02 18:39] LABS: ALT (GPT) 11 U/L (10-53); AST (GOT) 9 U/L (15-37); GLOMERULAR FILTRATION RATE 104 ML/MIN (>89)
[2017-06-02 18:40] VITALS: BP 138/73; PULSE 83; O2SAT 93
[2017-06-02 18:40] LABS: TOTAL BILIRUBIN ADULT 0.4 MG/DL (0.2-1.0)
[2017-06-02 18:42] LABS: ALKALINE PHOSPHATASE 97 U/L (45-117)
[2017-06-02 18:49] LABS: ALCOHOL LESS THAN 3 MG/DL (0-5)
[2017-06-02] MEDS ORDERED: ZOFR4TAB PO (19:09)
[2017-06-02] MEDS ORDERED: HYDR-3534 PO (19:09)
[2017-06-02] MEDS ORDERED: PROCHLORPERAZINE INJ 10 MG/2 ML VIAL IV PUSH ONE (19:15)
[2017-06-02 20:21] VITALS: BP 136/72; PULSE 82; RESP 18; O2SAT 93
== END 2017-06-02 20:29 | disposition home or self-care (01) ==
LOC: PHED 17:00
DX: R07.81 Pleurodynia (principal); J44.9 Chronic obstructive pulmonary disease, unspecified; G40.909 Epilepsy, unspecified, not intractable, without status epilepticus; E07.9 Disorder of thyroid, unspecified
CPT/HCPCS: 71010; 80053; 80307; 83690; 85025; 94664; 96361; 96374; 96375; 99284; J0780; J1170; J2405; J7030

== ENCOUNTER → 2017-08-13 | Outpatient (CLI) | payer OTHER ==
[~2017-08-13] MED LIST changes: -ASPI81TA11 PO; +ASPI81TA23 PO; +HYDR-3534 PO; -NYST1000 SWISH-SWAL; +ZOFR4TAB PO
[2017-08-13 09:20] LABS: BLOOD GAS CARBOXYHEMOGLOBIN 1.5 % (0-4); BLOOD GAS HCO3 25 mmol/L (22-26); BLOOD GAS METHEMOGLOBIN 0.9 % (0-2); BLOOD GAS O2 HGB SATURATION 91 % (90-100); BLOOD GAS OXYGEN CONTENT 16.3 Vol % (12.0-20.0); BLOOD GAS PCO2 38 mmHG (38-42); BLOOD GAS PO2 67 mmHG (61-120); BLOOD GAS TOTAL HGB 12.7 G/DL (12.0-16.0); CRITICAL VALUE NO; FIO2 21 %; OXYGEN DEVICE ROOM AIR; TEMP CORR TO 98.6
[2017-08-13 09:21] LABS: DRAW SITE RT RADIAL; NUMBER OF ARTERIAL PUNCTURES 1; STAT NO; ULNAR PULSE PRESENT
--- NOTE | 2017-08-19 12:23 | RSPPFT ---
DATE OF PROCEDURE: 08/13/17 COMMENTS: VOLUMES DYNAMIC: FVC moderately reduced; FEV1 severely reduced. STATIC: FRC, RV and TLC normal. FLOWS: FEV1% and FEF 25-75 severely reduced. DIFFUSION: Severely reduced. FLOW VOLUME LOOP: Pattern of variable intrathoracic airways obstruction. IMPRESSION: Severe obstructive ventilatory defect with reduction in diffusion consistent with emphysema. There is significant improvement post-bronchodilator.
== END ==
LOC: PHRSP 08:51
PROVIDERS: ATTEND Internal Medicine
DX: J44.9 Chronic obstructive pulmonary disease, unspecified (principal)
CPT/HCPCS: 36600; 82805; 94060; 94620; 94726; 94729